=== PATIENT | male | born 1980 | race Two or more races ===

== ENCOUNTER 2024-04-12 19:10 | Emergency (ER) | payer OTHER, SELFPAY ==
--- NOTE | ~2024-04-12 | CT_ITS ---
EXAMINATION: CT PELVIS WITHOUT CONTRAST CLINICAL INFORMATION: Perineal swelling. Concern for abscess. COMPARISON: None available. TECHNIQUE: Helical scanning was performed with submillimeter collimation through the pelvis. Sagittal and coronal multiplanar 2-D reconstructions were obtained. This CT examination was performed using dose optimization techniques as appropriate, variously including the following: *Automated exposure control *Adjustment of mA and/or kV according to patient size (this includes techniques or standardized protocols for targeted exams where dose is matched to indication/reason for exam; i.e. extremities or head) *Use of iterative reconstruction technique DLP: 399 mGy-cm FINDINGS: PELVIS: There is no pelvic mass. The urinary bladder is unremarkable. The visualized bowel is unremarkable. There is no free fluid within the pelvis. OSSEOUS STRUCTURES: Unremarkable. SOFT TISSUES: There is medial inferior gluteal/perineal right-sided skin thickening and subcutaneous infiltration/edema. There is no fluid collection. CT/CT pelvis wo IV con IMPRESSION: Medial inferior gluteal/perineal right-sided skin thickening and subcutaneous infiltration/edema. No fluid collection.
[2024-04-12 20:20] VITALS: BP 118/71; PULSE 85; RESP 18; TEMP 37.2; O2SAT 96; BMI 23.9
[2024-04-13 00:05] VITALS: BP 118/82; PULSE 70; RESP 18; TEMP 36.5; O2SAT 98
--- NOTE | 2024-04-13 00:24 | MHC.EDTECH ---
pt changed into hospital gown
--- NOTE | 2024-04-13 00:52 | PC.NURSE ---
Patient is alert and oriented x3, VSS. Patient reports 10/10 pain in adrienne rectal aree d/t abscess. 20 G IV line established in R AC, labs drawn per MD orders and sent to lab. Call washburn placed within patient's reach. Plan of care ongoing.
[2024-04-13 00:56] LABS: Basophils Absolute Auto 0.1 X10*3/uL (0.0-0.2); Basophils Percent Auto 0.5 % (0-2); Eosinophils Absolute Auto 0.2 X10*3/uL (0.0-0.4); Eosinophils Percent Auto 2.2 % (0-4); Hematocrit 42.5 % (42.0-52.0); Hemoglobin 14.5 g/dl (14.0-18.0); Imm Gran Abs Auto 0.06 X10*3/uL (0.00-0.03); Imm Gran Pct Auto 0.5 % (0.0-0.4); Lymphocytes Absolute Auto 3.1 X10*3/uL (1.2-4.9); Lymphocytes Percent Auto 27.9 % (20-40); MANUAL DIFF FLAG NO; Mean Corpuscular HGB Conc 34.1 g/dl (31.0-36.0); Mean Corpuscular Hemoglobin 29.8 pg (27.0-33.0); Mean Corpuscular Volume 87.4 fL (80.0-98.0); Mean Platelet Volume 10.1 fL (9.4-12.4); Monocytes Absolute Auto 1.3 X10*3/uL (0.1-1.2); Monocytes Percent Auto 11.4 % (2-11); Neutrophils Absolute Auto 6.3 x10*3/uL (2.0-8.3); Neutrophils Percent Auto 57.5 % (45-73); Platelet Count 296 X10*3/uL (160-400); Red Blood Count 4.86 X10*6/uL (4.60-5.80); Red Cell Distribution Width 12.6 % (11.0-16.0)
[2024-04-13] MEDS: 0.9 % Sodium Chloride 1,000 ML 999 ML IVCONT (00:56)
[2024-04-13] MEDS: levoFLOXacin/D5W 500 MG/100 ML PIGGYBACK 100 MG IV (00:59)
[2024-04-13 01:14] LABS: Alanine Aminotransferase 22 U/L (0-40); Albumin Level 4.1 g/dL (3.5-5.0); Alkaline Phosphatase 102 U/L (39-117); Anion Gap 13 (12-20); Aspartate Amino Transferase 24 U/L (5-37); Bilirubin Direct 0.1 mg/dL (0.0-0.5); Bilirubin Total 0.4 mg/dL (0.0-1.0); Blood Urea Nitrogen 18 mg/dL (9-16); Calcium 8.9 mg/dL (8.4-10.2); Carbon Dioxide 23 mmol/L (22-29); Chloride 106 mmol/L (96-108); Creatinine Clr Calc Pharmacy 117.9; Estimated Glomerular Filt Rate > 60; Glucose Random 82 mg/dL (60-115); Potassium 4.1 mmol/L (3.3-5.1); Sodium 138 mmol/L (135-145); Total Protein 7.2 g/dL (6.5-8.0)
--- NOTE | 2024-04-13 01:18 | ED.GENADULT ---
HPI - General Adult General Chief complaint: General Medical Stated complaint: abcess in rectum Time Seen by Provider: 04/13/24 00:29 Source: patient Mode of arrival: ambulatory Limitations: no limitations History of Present Illness ED Provider: Dr. Jessica Saenz HPI narrative: Patient comes to the emergency room complaining of 5 days of a perianal abscess. Patient states that every time that he has a bowel movement or wipes it is extremely painful. Patient denies fever chills, no diarrhea. Patient states that sometimes when he presses on it, he sees whitish-yellowish discharge. Patient states it is too painful to keep putting pressure over it. Also, patient complaining of chronic left shoulder pain, denies any trauma. Related Data Previous Rx's ?Medication ?Instructions ?Recorded doxycycline hyclate 100 mg tablet 100 mg PO BID #20 tabs 04/13/24 ibuprofen 600 mg tablet 600 mg PO Q6H PRN fever or pain 04/13/24 #30 tabs Allergies Allergy/AdvReac Type Severity Reaction Status Date / Time No Known Allergies Allergy Verified 04/12/24 20:30 Review of Systems Review of Systems: Constitutional : No Weight loss, No Fever, No Chills, No Night Sweats, No Fatigue, No Malaise ENT/Mouth : No Hearing loss, No Ear Pain, No Nasal Congestion, No Sinus Pain, No Hoarseness, No sore throat, No Rhinorrhea, No Swallowing Difficulty Eyes: No Eye Pain, No Swelling, No Redness, No Foreign Body, No Discharge, No Vision Changes Cardiovascular : No Chest Pain, No SOB, No Dyspnea on Exertion, No Orthopnea, No Edema, No Palpitations Respiratory : No Cough, No Sputum, No Wheezing, No Smoke Exposure, No Dyspnea Gastrointestinal : Complaining of perianal drainage a pain. No Nausea, No Vomiting, No Diarrhea, No Constipation, No abdominal Pain, No Hematochezia, No Melena Genitourinary : no irregular bleeding, No Dysuria, No Urinary Frequency, No Hematuria, No Urinary Incontinence, No Urgency, No Flank Pain, No Urinary Flow Changes, No Hesitancy Musculoskeletal : Complaining of chronic left shoulder pain, No Myalgias, No Joint Swelling Skin : No Skin Lesions, No rash Neuro : No Weakness, No Numbness, No Paresthesias, No Loss of Consciousness, No Dizziness, No Headache Psych : No Anxiety/Panic, No Depression, No SI/HI/AH/VH, No Social Issues, Heme/Lymph: No Bruising, No Bleeding,No Lymphadenopathy Endocrine : No Polyuria, No Polydipsia, No Temperature Intolerance [facility] Social History Social History Smoked in Last 30 Days: Yes Use of substances other than those prescribed or required for medical reasons: No Advance Directives: No Advance Directives Information Provided: No Do you have a plan to hurt others: No Plan Physical Exam ED Vital Signs: Vital Signs - 24 hr 04/12/24 20:20 04/13/24 00:05 04/13/24 02:14 Temperature 98.9 F 97.7 F Pulse Rate 85 70 75 Respiratory Rate 18 18 16 Blood Pressure 118/71 118/82 101/59 L Pulse Oximetry 96 98 98 Oxygen Delivery Method Room Air Room Air Room Air 04/13/24 04:30 Temperature 97.8 F Pulse Rate 76 Respiratory Rate 16 Blood Pressure 110/60 Pulse Oximetry 98 Oxygen Delivery Method BMI result Body Mass Index 23.9 Const Other: Appearance: Alert. Oriented X3. No acute distress. Eyes: Pupils equal, round and reactive to light. ENT: Pharynx normal. Neck: Normal inspection. Neck supple. No lymph nodes noted. No crepitus CVS: Normal heart rate and rhythm. Pulses normal. Normal S1 and S2 Respiratory: No respiratory distress. Breath sounds normal. No Wheezing. No rales Abdomen: Soft and nontender. No rigidity. No distention. Patient seems to have a small abscess in the anal area. No hemorrhoids. Skin: Skin warm and dry. Normal skin color. Normal skin turgor. Extremities: No lower extremity edema. No Lacerations. No Rash Neuro: Oriented X 3. No motor deficit. No sensory deficit. Moving all extremities. No slurred speech. CN 2 through 12 grossly intact Psych: calm, cooperative, normal affect Course Course Course Narrative: -I discussed with the patient that given the area of the abscess, the next best course of action would be to do a CT scan of the area to rule out fistulas. -patient received IV fluids, antibiotics IV, levofloxacin and metronidazole, also a dose of ketorolac for pain management. Medications Administered Discontinued Medications Generic Name Dose Route Start Last Admin Trade Name Freq PRN Reason Stop Dose Admin Levofloxacin 500 mg in 100 mls @ 100 mls/hr 04/13/24 00:34 04/13/24 02:02 Levaquin IV 04/13/24 01:33 Infused ONCE ONE Infusion Metronidazole 500 mg in 100 mls @ 100 mls/hr 04/13/24 00:34 04/13/24 03:04 Flagyl IV 04/13/24 01:33 Infused ONCE ONE Infusion Sodium Chloride 1,000 mls @ 999 mls/hr 04/13/24 00:34 04/13/24 02:02 Ns IVCONT 04/13/24 01:34 Infused .Q1H1M ONE Infusion Ketorolac Tromethamine 30 mg 04/13/24 01:22 04/13/24 01:38 Ketorolac Tromethamine 30 Mg/Ml Vial IVPUSH 04/13/24 01:23 30 mg ONCE ONE Administration Medical Decision Making Medical Decision Making MDM Narrative: -my interpretation of labs: White blood cell count slightly elevated, chemistry within normal limits, lactic acid 1.0, LFTs normal -patient denies any fever or chills, blood pressure normal, episodes of hypotension, no fever, sepsis not suspected Lab Data [facility] Lab Attestation statement: I reviewed the patient's lab results. 04/13/24 00:45 04/13/24 00:45 Labs: Lab Results 04/13/24 Range/Units 00:45 WBC 11.0 H (4.8-10.8) X10*3/uL RBC 4.86 (4.60-5.80) X10*6/uL Hgb 14.5 (14.0-18.0) g/dl Hct 42.5 (42.0-52.0) % MCV 87.4 (80.0-98.0) fL MCH 29.8 (27.0-33.0) pg MCHC 34.1 (31.0-36.0) g/dl RDW 12.6 (11.0-16.0) % Plt Count 296 (160-400) X10*3/uL MPV 10.1 (9.4-12.4) fL Immature Gran % (Auto) 0.5 H (0.0-0.4) % Neut % (Auto) 57.5 (45-73) % Lymph % (Auto) 27.9 (20-40) % [place] % (Auto) 11.4 H (2-11) % Eos % (Auto) 2.2 (0-4) % Baso % (Auto) 0.5 (0-2) % Lymph # (Auto) 3.1 (1.2-4.9) X10*3/uL [place] # (Auto) 1.3 H (0.1-1.2) X10*3/uL Eos # (Auto) 0.2 (0.0-0.4) X10*3/uL Baso # (Auto) 0.1 (0.0-0.2) X10*3/uL Abs Immat Gran (auto) 0.06 H (0.00-0.03) X10*3/uL Absolute Neuts (auto) 6.3 (2.0-8.3) x10*3/uL Absolute Nucleated RBC 0.000 (0.0-0.012) X10*3/uL Nucleated RBC % (auto) 0.0 (0.0-0.2) /100WBC Sodium 138 (135-145) mmol/L Potassium 4.1 (3.3-5.1) mmol/L Chloride 106 (96-108) mmol/L Carbon Dioxide 23 (22-29) mmol/L Anion Gap 13 (12-20) BUN 18 H (9-16) mg/dL Creatinine 0.86 (0.5-1.4) mg/dL Estim Creat Clear Calc 117.9 Estimated GFR > 60 Random Glucose 82 (60-115) mg/dL Lactic Acid 1.0 (0.5-2.0) mmol/L Calcium 8.9 (8.4-10.2) mg/dL Total Bilirubin 0.4 (0.0-1.0) mg/dL Direct Bilirubin 0.1 (0.0-0.5) mg/dL AST 24 (5-37) U/L ALT 22 (0-40) U/L Alkaline Phosphatase 102 (39-117) U/L Total Protein 7.2 (6.5-8.0) g/dL Albumin 4.1 (3.5-5.0) g/dL Independent Interpretation I performed an independent interpretation of an: CT Scan Radiology Impression Discussion of test interpretation with radiology: I have reviewed the radiologist's reading. Radiologist Impression: CT/CT pelvis wo IV con IMPRESSION: Medial inferior gluteal/perineal right-sided skin thickening and subcutaneous infiltration/edema. No fluid collection. Discharge Plan Discharge Clinical Impression: Cellulitis of buttock, left Patient Disposition: Home, Self-Care Instructions: Cellulitis (ED) Additional Instructions: Your have small indurated cellulitic area and left rectal area Take antibiotic as prescribed Ibuprofen for pain Follow the PCP if any concerns Prescriptions: New ibuprofen 600 mg tablet 600 mg PO Q6H PRN (Reason: fever or pain) Qty: 30 0RF doxycycline hyclate 100 mg tablet 100 mg PO BID Qty: 20 0RF Interventions: ED Discharge Assessment Last Done: 04/13/24 04:30 Discharge Date/Time: 04/13/24 04:31 Print Language: Italian
--- NOTE | 2024-04-13 01:29 | PC.NURSE ---
Patient taken to CT scan.
--- NOTE | 2024-04-13 01:32 | PC.NURSE ---
Patient is back from CT scan. Patient continues to c/o of 10/10 pain in adrienne rectal area. Dr. Saenz notified.
[2024-04-13] MEDS: Ketorolac Tromethamine 30 MG/ML VIAL IVPUSH (01:38)
[2024-04-13] MEDS: metroNIDAZOLE/NS 500 MG/100 ML PIGGYBACK 100 MG IV (02:04)
[2024-04-13 02:14] VITALS: BP 101/59; PULSE 75; RESP 16; O2SAT 98
--- NOTE | 2024-04-13 02:18 | PC.NURSE ---
Patient reports pain in adrienne rectal area from 08/31 to 03/31 following administration of Toradol 30 mg IV push.
[2024-04-13 04:30] VITALS: BP 110/60; PULSE 76; RESP 16; TEMP 36.6; O2SAT 98
== END 2024-04-13 04:31 | disposition home or self-care (01) ==
PROVIDERS: Emergency Provider Emergency Medicine
DX: L03.317 Cellulitis of buttock (principal); K61.0 Anal abscess
CPT/HCPCS: 36415; 72192; 80048; 80076; 83605; 85025; 87040; 96361; 96365; 96375; 99285; J1836; J1885; J1956